=== PATIENT | female | born 2000 | race African-American/Black ===

== ENCOUNTER 2023-03-06 11:57 | Emergency (ER) | payer MEDICAID, SELFPAY ==
--- NOTE | ~2023-03-06 | US_ITS ---
EXAMINATION: US abdomen limited DATE: 03/06/2023 15:29 INDICATION: Concern for appendicitis during TECHNIQUE: Multiple grayscale and Doppler ultrasound images of the right lower quadrant of the abdome n were obtained. COMPARISON: None FINDINGS/IMPRESSION: The appendix is unable to be identified. Reviewed, dictated and finalized at location [facility]. [employer]
[2023-03-06 12:11] VITALS: BP 100/54; PULSE 86; RESP 20; TEMP 36.9; O2SAT 100
[2023-03-06 13:08] LABS: Basophils Absolute Auto 0.1 K/mm3 (0.0-0.1); Basophils Percent Auto 0.4 % (0.2-1.2); Eosinophils Absolute Auto 0.2 K/mm3 (0-0.3); Eosinophils Percent Auto 2.1 % (0-4.4); Hematocrit 33.2 % (37.0-47.0); Hemoglobin 10.4 g/dL (12.0-15.0); Immature Granulocyte Absolute 0.11 K/mm3 (0.00-0.031); Lymphocytes Absolute Auto 1.62 K/mm3 (0.9-3.2); Lymphocytes Percent Auto 14.3 % (18.3-44.2); Mean Corpuscular HGB Conc 31.3 g/dl (32-36); Mean Corpuscular Volume 92.5 fl (80-100); Mean Platelet Volume 10.3 fl (7.4-10.4); Monocytes Absolute Auto 0.7 K/mm3 (0.1-0.6); Monocytes Percent Auto 5.7 % (2.6-8.5); Neutrophils Absolute Auto 8.7 K/mm3 (1.3-6.7); Neutrophils Percent Auto 76.5 % (45.5-73.1); Platelet Count Result 260 k/mm3 (150-375); Red Blood Count 3.59 M/mm3 (4.2-5.4); Red Cell Distribution Width 13.2 % (11.5-14.5); White Blood Count 11.3 K/mm3 (4.5-10.0)
[2023-03-06] MEDS: SODIUM CHLORIDE 0.9% IV 1,000 ML 999 ML IV CONT (13:17)
[2023-03-06 13:18] LABS: Alanine Aminotransferase 12 U/L (6-35); Alkaline Phosphatase 61 U/L (38-126); Anion Gap 9 mmol/L (8-16); Aspartate Amino Transferase 18 U/L (14-36); Bilirubin,Total 0.4 mg/dL (0.2-1.3); Blood Urea Nitrogen 9 mg/dL (7-17); Carbon Dioxide 21 mmol/L (22-30); Chloride 105 mmol/L (98-107); Estimated CRCL calculation 148 ml/min; Estimated Glomerular Filt Rate > 60; Glucose 85 mg/dL (65-110); Potassium 4.1 mmol/L (3.4-5.0); Sodium 135 mmol/L (137-145)
[2023-03-06 14:01] LABS: Influenza A QL RT-PCR Negative (Negative); Influenza B QL RT-PCR Negative (Negative); SARS-CoV-2 RNA PCR Negative (Negative)
[2023-03-06] MEDS: ACETAMINOPHEN 500 MG TABLET 1000 MG PO (14:09)
[2023-03-06 14:31] LABS: Appearance Urine Cloudy (Clear); Bilirubin Urine Negative (Negative); Blood Urine Negative (Negative); Color Urine Yellow (Yellow); Glucose Urine UA Negative (Negative); Ketones Urine 1+ mg/dL (Negative); Leukocyte Esterase Ur 2+ LEU/UL (Negative); Nitrate Urine Negative (Negative); Protein Urine Negative (Negative); Specific Grav Ur 1.015 (1.001-1.035); pH Urine 6.5 (5.0-9.0)
--- NOTE | 2023-03-06 14:37 | ED.NAVMDI ---
HPI - Nausea/Vomiting/Diarrhea General Chief complaint: Nausea/Vomiting/Diarrhea Stated complaint: vomiting Time Seen by Provider: 03/06/23 12:29 Source: patient Limitations: no limitations History of Present Illness HPI Narrative: This is a 22 year old female who presents with nausea, vomiting, and diarrhea. GA [id number] by both LMP 10/17/22 and PAUL reported at 07/24/[address]. [address] sees [address] Alfred as her ObGyn at [facility] in [place] (also where her PCP Hodan Melendez is). No complications during . She lives with her mother and 2 children. Her daughter did have a fever and vomiting last week. She continues to have an appetite but has had an episode of non bloody emesis and 2 liquid stools as well as a headache. She is also having some abdominal pain at the umbilicus. No fevers or vaginal bleeding. Denies hematuria/urgency/frequency. SHe has been intermittently constipated during this for which she uses Miralax as needed but hasn't required any today. No change in movement, no leakage of fluid. Related Data Allergies Allergy/AdvReac Type Severity Reaction Status Date / Time sulfamethoxazole Allergy Hives Verified 03/06/23 12:19 [From Bactrim] trimethoprim [From Bactrim] Allergy Hives Verified 03/06/23 12:19 PMFSH Past Medical History Medical History (Updated 03/07/23 @ 10:31 by Xiao Piedra MD) 2, currently LMP 10/17/22; PAUL 07/24/23 Social History Social History (Updated 03/07/23 @ 10:18 by Xiao Piedra MD) Living arrangements: with family Additional living arrangements comments: Mother and 2 children Exam Const: General: healthy appearing and alert; No confusion or diaphoretic Nutritional Appearance: well nourished Orientation/consciousness: patient oriented x3 Limitations: no limitations HENMT: Head: normal to inspection Mouth: Yes moist mucous membranes Other: gross auditory acuity intact Eyes: Direct Ophthalmoscopy: no photophobia Neck: Neck: normal visual inspection Resp: Effort & Inspection: normal respiratory effort Cardio: Rate: regular rate GI: Inspection: distended GI Palp: Yes Soft to palpation, Yes Tenderness to palpation present (GI) (slightly tender to palpation in RLQ, approximately at McBurney point. ), No Guarding due to palpation present (GI) and No Rigid due to palpation Other: gravid; fundal height just at umbilicus Rovsing sign positive Skin: General skin exam: normal color, no jaundice and no pallor Rashes: no rashes Neuro: General: patient oriented x3 and moves all extremities Speech: normal speech Extrem: General: normal to inspection Psych: Mental Status: mental status grossly normal Affect: normal affect Attitude: cooperative Course Vital Signs Vital signs: Vital Signs Temperature 98.4 F 03/06/23 12:11 Pulse Rate 86 03/06/23 12:11 Respiratory Rate 20 03/06/23 12:11 Blood Pressure 100/54 L 03/06/23 12:11 Pulse Oximetry 100 03/06/23 12:11 Oxygen Delivery Room Air 03/06/23 12:11 Temperature 98.4 F 03/06/23 12:11 Pulse Rate 79 03/06/23 16:53 Respiratory Rate 20 03/06/23 16:53 Blood Pressure 111/71 03/06/23 16:53 Pulse Oximetry 100 03/06/23 16:53 Oxygen Delivery Room Air 03/06/23 12:11 MDM - Nausea/Vomiting/Diarrhea MDM Narrative Medical decision making narrative: This is a 22 yo [id number] patient at 20weeks/0 days gestational age by LMP 10/17/22 and PAUL 07/24/23 presenting with umbilical abdominal pain Associated with nausea, 1 episode of vomiting, and 2 episodes liquid stool. Considered spectrum of miscarriage/ (threatened, inevitable, incomplete, complete, septic) as well as causes of female-specific abdominal pain unrelated to (e.g., pelvic inflammatory disease with or without tubo-ovarian abscess, Grcr-Rbyt-Niefsi, UTI, ovarian torsion, etc.). Also considered causes of abdominal pain that are not gender-specific (e.g., ap
[2023-03-06 14:53] LABS: Bacteria Urine 2+ /hpf; Need Manual Microscopic Reviewed; RBC Urine 0-2 /hpf (0-2); Squamous Epithelial Cell Urine Moderate /hpf (Few); WBC Urine 51-100 /hpf
[2023-03-06 14:57] LABS: Add Urine Microscopic? YES
[2023-03-06] MEDS: NITROFURANTOIN MONOHYD MACROCR 100 MG CAP PO (16:45)
[2023-03-06 16:53] VITALS: BP 111/71; PULSE 79; RESP 20; O2SAT 100
== END 2023-03-06 16:55 | disposition home or self-care (01) ==
PROVIDERS: Emergency Provider Student in an Organized Health Care Education/Training Program
DX: O23.42 Unspecified infection of urinary tract in pregnancy, second trimester (principal); N39.0 Urinary tract infection, site not specified; Z3A.20 20 weeks gestation of pregnancy; K52.9 Noninfective gastroenteritis and colitis, unspecified
CPT/HCPCS: 36415; 76705; 80053; 81001; 81025; 85025; 87086; 87636; 96360; 99284; A9270; J7030